=== PATIENT | male | born 1995 | race Caucasian/White ===

== ENCOUNTER 2020-12-19 18:02 | Emergency (ER) | payer OTHER ==
[~2020-12-19] VITALS: Ht 172.7 cm; Wt 79.4 kg
[2020-12-19 18:05] VITALS: Ht 172.7 cm; Wt 79.4 kg
[2020-12-19] MEDS ORDERED: IBU600 M2 PO (19:32)
[2020-12-19 19:55] VITALS: BP 127/83
== END 2020-12-19 19:55 | disposition home or self-care (01) ==
LOC: ED 18:02
DX: S01.01XA Laceration without foreign body of scalp, initial encounter (principal); W18.30XA Fall on same level, unspecified, initial encounter; Y93.89 Activity, other specified; Y92.89 Other specified places as the place of occurrence of the external cause; Y99.8 Other external cause status
CPT/HCPCS: 90715